=== PATIENT | male | born 1955 | race American Indian/Alaskan Native ===

== ENCOUNTER 2020-04-06 07:59 | Observation (INO) | payer OTHER, MEDICARE ==
[2020-04-06] MEDS ORDERED: ASPIRIN EC 325 MG TAB PO ONE (08:29)
[2020-04-06] MEDS ORDERED: HEPARIN/NS 5000 UNIT/500ML 1,000 ML IR ONE (08:43)
[2020-04-06] MEDS ORDERED: LIDOCAINE (2%) 20 MG/1 ML VIAL 20 ML MDV INFILTRATI ONE (08:43)
[2020-04-06] MEDS ORDERED: HEPARIN 10,000 UNITS/10 ML VIAL ONE (08:43)
[2020-04-06] MEDS: SODIUM CHLORIDE 0.9% 500 ML 500 ML IV SCH ×3 (09:16→10:17)
[2020-04-06 09:19] LABS: Basophils % (Auto) 0.5 % (0.0-1.8); Eosinophils # (Auto) 0.1 K/mm3 (0.0-0.4); Eosinophils % (Auto) 2.6 % (0.0-4.3); Hematocrit 40.5 % (35.5-45.6); Hemoglobin 13.7 gm/dl (11.8-15.2); Lymphocytes # (Auto) 1.5 K/mm3 (1.2-5.4); Lymphocytes % (Auto) 48.6 % (13.4-35.0); Mean Corpuscular HGB Conc 34 % (32-34); Mean Corpuscular Volume 96 fl (84-94); Monocytes # (Auto) 0.4 K/mm3 (0.0-0.8); Monocytes % (Auto) 11.8 % (0.0-7.3); Platelet Count 211 K/mm3 (140-440); Red Blood Count 4.21 M/mm3 (3.65-5.03); Red Cell Distribution Width 13.9 % (13.2-15.2)
[2020-04-06 09:28] LABS: BUN/Creatinine Ratio 11; Blood Urea Nitrogen 11 mg/dL (9-20); Calcium 8.9 mg/dL (8.4-10.2); Hemolysis Index 63
[2020-04-06 09:47] LABS: INR 0.91 (0.87-1.13)
[2020-04-06 09:49] LABS: Partial Thromboplastin Time 24.2 Sec. (24.2-36.6)
[2020-04-06] MEDS: MIDAZOLAM 2 MG/2 ML INJ ONE ×2 (10:07→10:13)
[2020-04-06] MEDS: fentaNYL 100 MCG/2 ML INJ ONE ×2 (10:07→10:13)
[2020-04-06] MEDS: VERAPAMIL 5 MG/2 ML INJ ONE ×2 (10:16→10:17)
[2020-04-06] MEDS: NITROGLYCERIN SYRINGE 3 ML ONE ×2 (10:16→10:17)
[2020-04-06] MEDS ORDERED: HEPARIN/ 0.45% NACL DRIP 25,000 UNIT/500 ML BAG ONE (10:31)
[2020-04-06] MEDS ORDERED: NITROGLYCERIN DRIP 50 MG/250 ML BOTTLE ONE (10:58)
--- NOTE | 2020-04-06 11:44 | Cardiac Catherization Report ---
CARDIAC CATHETERIZATION REFERRING PHYSICIAN: Dr. Arias. INDICATION FOR PROCEDURE: The patient is a very pleasant 64-year-old -[place] gentleman with a history of diabetes, Alzheimer's, hypertension, sleep apnea, who presents with a very high calcium score, found to have unstable angina and referred for left heart catheterization. Risks, benefits, alternatives explained at length prior to obtaining informed consent. PROCEDURE IN DETAIL: The patient was brought to the catheterization lab in postabsorptive state, prepped and draped in sterile fashion. Hi's test in right hand was normal. An 8 mL of 2% lidocaine used to anesthetize the right wrist. A standard 6-Irish hydrophilic sheath was used to cannulate the right radial artery via modified Seldinger technique. All exchanges performed to exchange a J-tip guidewire. JL3.5 catheter used to engage the left main. No dampening or ventricularization. Cineangiography performed in all projections. JR4 catheter was used to cross the aortic valve under fluoroscopic guidance. Left ventriculography performed in 30 HENRIQUEZ and 30 MAVIS projections via hand injections, catheter flushed. Manual pullback performed with continuous pressure monitoring. Catheter used to engage the right coronary. No dampening or ventricularization. Cineangiography performed in multiple projections. Next, catheter removed from the body of wire, sheath removed. Manual pressure used to achieve hemostasis. I directly supervised the administration of moderate sedation with fentanyl and Versed from 10:00 a.m. to 10:31 a.m. No immediate complications. DATA: Aortic pressure is 160/80, LV pressure is 160, LVEDP of 10 mmHg. The patient remained in normal sinus rhythm throughout the procedure. Normal left ventricular systolic performance, estimated ejection fraction of 55-60%. No evidence of aortic stenosis. CORONARY ANATOMY: Right dominant system short left main, bifurcates in the LAD and left circumflex. Left circumflex with an 80% stenosis in the mid segment. It should be noted that there is PRASANNA 3 flow throughout the coronary tree. 70% calcific proximal LAD stenosis is noted, 99% distal LAD stenosis is noted, 99% stenosis of the proximal first diagonal is noted. PRASANNA 3 flow throughout. Right coronary with a 90% ostial stenosis, PRASANNA 3 flow. CONCLUSIONS: 1. Severe and diffuse epicardial coronary disease in this right dominant system. A. 70% proximal LAD. B. 80% mid left circumflex. C. 90% ostial right coronary artery stenosis. D. 99% distal LAD stenosis. E. 99% first diagonal stenosis. 2. Preserved left ventricular systolic performance, estimated ejection fraction of 55-60%. 3. Normal LVEDP. 4. No evidence of aortic stenosis. The patient has diabetes and diffuse multivessel coronary artery disease, I think this would be best dealt with coronary bypass surgery with complete revascularization. He is clinically stable, chest pain free at this time. Blood pressure control. Continue IV heparin drip. He will be transferred to [facility] for consideration of the same. Clinically and hemodynamically stable. Discussed with his daughter, Melyssa via telephone. All results discussed with the patient. He will be transferred in stable condition. Once bypass is performed, could consider elective PCI of distal LAD thereafter. The patient is now clinically stable. Await transfer. Follow up with Dr. Arias in the office. JOB# [id number] SBM/NTS
--- NOTE | 2020-04-06 13:40 | Short Stay Summary ---
Short Stay Documentation Date of service: 04/06/20 - History H&P: obtained from office - Allergies and Medications Current Medications: Allergies No Known Allergies Allergy (Verified 03/23/15 10:40) Home Medications Medication Instructions Recorded Confirmed Last Taken Type AtorvaSTATin 40 mg PO DAILY 03/23/15 04/06/20 04/05/20 History 1 tab Galantamine [Razadyne] 8 mg PO DAILY 03/23/15 04/06/20 04/05/20 History 1 tab Memantine HCl [Namenda] 10 mg PO DAILY 03/23/15 04/06/20 04/05/20 History 1 tab hydroCHLOROthiazide [HCTZ] 12.5 mg PO QDAY 03/23/15 04/06/20 04/05/20 History 12.5 metFORMIN [Glucophage] 500 mg PO BID 03/23/15 04/06/20 04/03/20 History 1 tab Aspirin [Aspirin BABY CHEW TAB] 81 mg PO QDAY 04/06/20 04/06/20 04/05/20 History 1 tab Empagliflozin [Jardiance] 1 tab PO DAILY 04/06/20 04/06/20 04/05/20 History 1 tab Levothyroxine [Synthroid] 50 mcg PO DAILY 04/06/20 04/06/20 04/05/20 History 1 tab Metoprolol [Lopressor TAB] 50 mg PO BID 04/06/20 04/06/20 04/05/20 History 1 tab Tamsulosin [Flomax] 0.4 mg PO QDAY 04/06/20 04/06/20 04/05/20 History 1 tab Active Medications Sodium Chloride (Nacl 0.9% 500 Ml) 500 mls @ 50 mls/hr IV DIRECT HAMZAH Stop: 04/06/20 18:59 Last Admin: 04/06/20 10:16 Dose: 50 mls/hr Documented by: - Brief post op/procedure progress note Date of procedure: 04/06/20 Pre-op diagnosis: chest pain Post-op diagnosis: other (CAD) Procedure: [facility] - see dictated cath report Anesthesia: local Estimated blood loss: none Condition: stable - Hospital course Hospital course: pt to tx to [place] for revascularization - Disposition Condition at discharge: Stable Disposition: [id number] ANOTHER TYPE [facility]ARE - Discharge Diagnoses (1) CAD (coronary artery disease) Status: Chronic Short Stay Discharge Plan Diet: low fat, low cholesterol, low salt Wound: open to air, keep clean and dry, per your surgeon's advice Follow up with: GLORIA RAM MD [Primary Care Provider] - 7 Days
[2020-04-06] MEDS ORDERED: ACETAMINOPHEN 325 MG TAB PO PRN (15:25)
[2020-04-06] MEDS ORDERED: HYDROcodone/ACETAMINOPHEN 5-325 MG TAB PO PRN (15:25)
[2020-04-06] MEDS ORDERED: ONDANSETRON 4 MG/2 ML INJ IV PRN (15:25)
[2020-04-06] MEDS ORDERED: HEPARIN 10,000 UNITS/10 ML VIAL IV PRN (15:27)
[2020-04-06] MEDS ORDERED: DEXTROSE 50% IN WATER (25GM) 50 ML SYRINGE IV PRN (15:30)
[2020-04-06] MEDS ORDERED: NITROGLYCERIN 0.4 MG TAB SUBL SL PRN (15:32)
[2020-04-06] MEDS ORDERED: hydrALAZINE 20 MG/1 ML INJ IV PRN (15:32)
[2020-04-06] MEDS: amLODIPine 5 MG TAB PO SCH (16:03)
[2020-04-06 16:09] LABS: Hematocrit 43.9 % (35.5-45.6); Hemoglobin 14.8 gm/dl (11.8-15.2)
[2020-04-06 16:17] LABS: INR 0.94 (0.87-1.13)
[2020-04-06] MEDS ORDERED: INSULIN LISPRO 100 UNIT/ML SUB-Q ONE (16:30)
[2020-04-06] MEDS: INSULIN LISPRO 100 UNIT/ML VIAL 3 mL SUB-Q SCH ×2 (16:38→21:58)
[2020-04-06] MEDS: METOPROLOL TARTRATE 50 MG TAB PO SCH (21:58)
[2020-04-06] MEDS: HEPARIN/ 0.45% NACL DRIP 25,000 UNIT/500 ML BAG IV SCH (22:03)
[2020-04-07 05:31] LABS: Hematocrit 40.5 % (35.5-45.6); Hemoglobin 13.7 gm/dl (11.8-15.2); Mean Corpuscular HGB Conc 34 % (32-34); Mean Corpuscular Volume 97 fl (84-94); Platelet Count 207 K/mm3 (140-440); Red Blood Count 4.18 M/mm3 (3.65-5.03); Red Cell Distribution Width 14.1 % (13.2-15.2)
[2020-04-07 05:51] LABS: BUN/Creatinine Ratio 12; Blood Urea Nitrogen 13 mg/dL (9-20); Hemolysis Index 3
[2020-04-07] MEDS ORDERED: LEVOTHYROXINE 50 MCG TAB PO SCH (06:00)
[2020-04-07] MEDS ORDERED: hydroCHLOROthiazide 12.5 MG CAP PO SCH (10:00)
[2020-04-07] MEDS ORDERED: TAMSULOSIN 0.4 MG CAP PO SCH (10:00)
[2020-04-07] MEDS ORDERED: hydroCHLOROthiazide 25 MG TAB PO SCH (10:00)
[2020-04-07] MEDS ORDERED: ASPIRIN 325 MG TAB PO SCH (10:00)
--- NOTE | 2020-04-07 10:13 | Progress Note ---
Assessment and Plan Currently stable cardiac status. S/p LHC yesterday which showed severe multi- vessel CAD. Pt is awaiting tx to [place] where Dr. Ardon has agreed to accept pt for revascularization - probable CABG. Cont present cardiac management. The patient has been seen in conjunction with Dr. Manjit Mejia who agrees with the assessment and plan of care. - Patient Problems (1) CAD (coronary artery disease) Current Visit: Yes Status: Chronic (2) HTN (hypertension) Current Visit: Yes Status: Chronic (3) Diabetes Current Visit: Yes Status: Chronic (4) Sleep apnea Current Visit: Yes Status: Chronic Subjective Date of service: 04/07/20 Principal diagnosis: CAD Interval history: pt resting comfortably in bed, no current complaints. heparin gtt infusing. awaiting tx to [place] once bed is available. Objective Last Vital Signs Temp 98.4 F 04/07/20 05:03 Pulse 66 04/07/20 05:03 Resp 20 04/07/20 05:03 BP 136/67 04/07/20 05:03 Pulse Ox 98 04/07/20 05:03 - Physical Examination General: No Apparent Distress HEENT: Positive: PERRL, Normocephaly, Mucus Membranes Moist Neck: Positive: neck supple, trachea midline Cardiac: Positive: Reg Rate and Rhythm, S1/S2 Lungs: Positive: Decreased Breath Sounds Neuro: Positive: Grossly Intact Abdomen: Negative: Tender Incision: Cardiac Cath Site ([facility] site c/d/i, no bleeding or hematoma) Musculoskeletal: No Pain Extremities: Absent: edema - Labs and Meds Coagulation 04/06/20 Range/Units 15:49 PT 12.5 (12.2-14.9) Sec. INR 0.94 (0.87-1.13) APTT 81.0 H* (24.2-36.6) Sec. CBC 04/06/20 04/07/20 Range/Units 15:49 04:34 WBC 4.6 (4.5-11.0) K/mm3 RBC 4.18 (3.65-5.03) M/mm3 Hgb 14.8 13.7 (11.8-15.2) gm/dl Hct 43.9 40.5 (35.5-45.6) % Plt Count 207 207 (140-440) K/mm3 Comprehensive Metabolic Panel 04/07/20 Range/Units 04:34 Sodium 140 (137-145) mmol/L Potassium 3.9 (3.6-5.0) mmol/L Chloride 105.6 (98-107) mmol/L Carbon Dioxide 28 (22-30) mmol/L BUN 13 (9-20) mg/dL Creatinine 1.1 (0.8-1.3) mg/dL Glucose 101 H (75-100) mg/dL Calcium 9.0 (8.4-10.2) mg/dL - Imaging and Cardiology Cardiac cath: report reviewed - Telemetry EKG Rhythm: Sinus Rhythm
[2020-04-07 10:38] VITALS: BP 146/71
[2020-04-07] MEDS: METOPROLOL TARTRATE 50 MG TAB PO SCH (10:51)
[2020-04-07] MEDS: amLODIPine 5 MG TAB PO SCH (10:52)
[2020-04-07] MEDS: INSULIN LISPRO 100 UNIT/ML VIAL 3 mL SUB-Q SCH ×2 (10:52→12:05)
[2020-04-07] MEDS: HEPARIN/ 0.45% NACL DRIP 25,000 UNIT/500 ML BAG IV SCH (10:56)
== END 2020-04-07 15:20 | disposition other institution (70) ==
LOC: CATHLABREC 07:59 → 4A 15:26
PROVIDERS: ADMIT Internal Medicine; ATTEND Internal Medicine
DX: I25.10 Atherosclerotic heart disease of native coronary artery without angina pectoris (principal); I10 Essential (primary) hypertension; E11.9 Type 2 diabetes mellitus without complications; G47.30 Sleep apnea, unspecified; Z79.82 Long term (current) use of aspirin; Z79.84 Long term (current) use of oral hypoglycemic drugs; Z79.899 Other long term (current) drug therapy
CPT/HCPCS: 36415; 80048; 82962; 85014; 85018; 85025; 85027; 85049; 85520; 85610; 85730; 93005; 93458; 96365; 96366; 96372; A9270; C1894; G0378; J1644; J2250; J3010; J7040; J1815; Q9967